=== PATIENT | female | born 1990 | race African-American/Black ===

== ENCOUNTER 2024-12-28 11:12 | Emergency (ER) | payer OTHER, SELFPAY ==
[2024-12-28 11:25] VITALS: BP 108/73
[2024-12-28 11:49] LABS: % Basophils 0.6 % (0-2); % Eosinophils 2.5 % (0-6); % Immature Granulocytes 0.2 % (0-0.5); % Lymphocytes 35.7 % (20.5-51.1); % Monocytes 6.4 % (1.7-9.3); % Neutrophils 54.6 % (42.2-75.2); Absolute Eosinophils 0.1 10^3/uL (0-0.7); Absolute Lymphocytes 1.9 10^3/uL (1.2-3.4); Absolute Monocytes 0.3 10^3/uL (0.1-0.6); Absolute Neutrophils 2.8 10^3/uL (1.4-6.5); Hematocrit 36.4 % (37.0-47.0); Hemoglobin 11.1 g/dL (12.0-16.0); Mean Corp Hgb Conc. 30.5 g/dL (33.0-37.0); Mean Corpuscular Hgb 25.6 pg (27.0-31.0); Mean Corpuscular Volume 84.1 fL (81.0-99.0); Mean Platelet Volume 9.5 fL (7.4-10.4); Nucleated Red Blood Cells % 0 %; Platelet Count 298 10^3/uL (130-400); Red Blood Cell Count 4.33 10^6/uL (4.20-5.40); Red Cell Dist. Width 13.3 % (11.5-14.5); White Blood Cell Count 5.2 10^3/uL (4.8-10.8)
[2024-12-28 12:10] LABS: COVID-19 Antigen Negative (Negative)
[2024-12-28 12:21] LABS: ALT (SGPT) 19 U/L (0-35); AST (SGOT) 24 U/L (14-36); Albumin 4.4 g/dl (3.5-5.0); Alkaline Phosphatase 66 U/L (38-126); Blood Urea Nitrogen 10 mg/dl (7-17); Calcium 9.6 mg/dl (8.4-10.2); Carbon Dioxide 30 mmol/L (22-30); Chloride 102 mmol/L (98-107); Glucose 96 mg/dl (70-99); HCG, Serum Qualitative Screen Negative; Potassium 4.5 mmol/L (3.5-5.1); Sodium 137 mmol/L (135-145); Total Bilirubin 0.7 mg/dl (0.2-1.3); Total Protein 8.1 g/dl (6.3-8.2); eGFR > 60.00
--- NOTE | 2024-12-28 12:43 | ED.GENMED ---
History of Present Illness
General
Chief Complaint: Cold/Flu/URI Symptoms
Source: patient
Time Seen by Provider: 12/28/24 12:30
History of Present Illness
History of Present Illness:
34-year-old female presents emergency department with a 1 week history of not feeling well. She describes a 'stuffy nose' associated with a very mild sore throat, mild headache, nausea, and as of today feeling like her heart is racing and she has
trouble breathing. She denies cough, vomiting, abdominal pain, neck pain, photophobia back pain, rash, swelling, calf pain, estrogen use, recent immobilization, recent trauma, or other symptoms.
Past History
Past History
ED Past Medical History: Psychiatric
ED Past Surgical History: Other (Tonsillectomy)
Social History
Tobacco: Vaping
Alcohol: None
Personal: Single
Living: other
Employment: Other
Phy Exam
Physical Exam
Physical Exam:
GENERAL: Alert , in no apparent distress, extremely well-appearing
EYE: pupils equal and reactive, EOMI, no nystagmus, no photophobia
NECK: Supple, no significant adenopathy.
ENT: o/p clr, mmm, no trismus, no drool, voice clear.
CARDIAC: Regular rate and rhythm .
LUNGS: Clear breath sounds bilaterally, no acute respiratory distress, no wheezes/rales/rhonchi
ABDOMEN: Soft, without focal tenderness, no r/g, no cvat
NEUROLOGICAL: Alert and oriented, no focal neuro deficits
SKIN: Warm and dry, skin intact.
MUSCULOSKELETAL: No edema, well perfused., No calf pain or swelling
PSYCH: Normal and appropriate interaction.
Course
Orders/Labs/Results
Orders:
Orders
12/28/24 11:30
Electrocardiogram (*1) Urgent
Reason for Study: Chest Pain
EKG- Treatment ONCE
Test Result ONCE
12/28/24 11:41
COVID-19 Antigen Urgent
Source: Nasal Swab
Complete Blood Count/With Diff Urgent
Comprehensive Metabolic Panel Urgent
HCG, Serum Qualitative Screen Urgent
Comment: Notify provider if positive test present
Influenza A+B Rapid Molecular Urgent
PONCE Source: Nasal Swab
Specimen Description:
Abnormal Lab Results
12/28/24
11:41
Hgb 11.1 L g/dL
(12.0-16.0)
Hct 36.4 L %
(37.0-47.0)
MCH 25.6 L pg
(27.0-31.0)
MCHC 30.5 L g/dL
(33.0-37.0)
12/28/24 11:41
12/28/24 11:41
Vital Signs
Initial and Last Documented VS:
Initial Vital Signs
Temp Pulse Resp BP Pulse Ox
97.8 F 85 16 108/73 97
12/28/24 11:25 12/28/24 11:25 12/28/24 11:25 12/28/24 11:25 12/28/24 11:25
Last Documented Vital Signs
Temp Pulse Resp BP Pulse Ox
97.8 F 85 16 108/73 97
12/28/24 11:25 12/28/24 11:25 12/28/24 11:25 12/28/24 11:25 12/28/24 11:25
*Critical Care Note
Total Time (30-74mins, 75-104mins- exclusive of procedures): Not Applicable
Update Note
Update Note:
Patient presents to the Emergency Department with ____nasal congestion, nausea, sore throat, headache, dyspnea, palpitations
Number and Complexity of Problems Addressed at the Encounter
� Chronic conditions affecting care:
� Acute Exacerbation and/or Progression of Chronic Illness:
� Differential Diagnosis includes: But not limited to URI, sinusitis, pneumonia, bronchitis, meningitis, PE, etc. etc.
Amount and/or Complexity of Data to be Reviewed and Analyzed
� I performed an independent evaluation of and my interpretation is:
EKG: Normal sinus rhythm, normal rate, normal axis, no acute ischemia
CT:
Xrays:
Laboratory Studies: Generally unremarkable except mild anemia which patient was made aware and the need for follow-up concerning
Other:
� Review of other/old records reveals:
� Clinical information was obtained by an independent historian:
� Prescriptions/Medications Considered but not given:
� Further testing considered but not performed:
Risk of Complications and/or Morbidity or Mortality of Patient Management
� Social determinants of health affecting care:
� Discussion with other providers (PCP, Hospitalists, Consultants, etc):
� Escalation of care including admission/observation vs risk of discharge considered: Patient extremely well-appearing with an unremarkable workup here. I highly doubt more worrisome etiologies such as PE, patient does not have
tachycardia, tachypnea, hypoxia, pleuritic chest pain, calf swelling, estrogen use, etc. etc. Although she reports mild dyspnea, her lungs are clear without associated respiratory findings. Discussed with patient portance of follow-up and reasons
return to the ER.
ED Attending Note
-
Portions of this chart may have been created with voice recognition software.� Occasional wrong word or��sound alike� substitutions may have occurred due to the inherent limitations of voice recognition software.
Discharge Plan
Departure
Patient Disposition: Home (Routine Discharge)
Date of Disposition: 12/28/24
Time of Disposition: 12:43
Patient with high blood pressure during this ER visit?: Yes
Condition: Good
Discharge Problem:
URI (upper respiratory infection)
Instructions: Upper respiratory infection in adults - Discharge instructions, BLOOD PRESSURE
Referrals:
UNKNOWN - PT DOES,NOT KNOW [Family Provider] -
Activity Restrictions/Additional Instructions:
PLEASE SEE YOUR DOCTOR AND CLOSE FOLLOW-UP IN THE NEXT FEW DAYS. IF YOU DEVELOP FEVER, PERSISTENT TROUBLE BREATHING, ANY CHEST PAIN, DIZZINESS, SWELLING, ABDOMINAL PAIN, GET WORSE, DO NOT GET BETTER, OR OTHER WORRISOME SIGNS, PLEASE RETURN TO THE
ER IMMEDIATELY.
Interventions
Interventions:
*Risk Screen - Suicide Last Done: 12/28/24 11:25
*General Assessment Last Done: 12/28/24 11:25
*Neglect/Abuse Screening Last Done: 12/28/24 11:25
Discharge Date and Time
Print Language: YI
== END 2024-12-28 12:54 | disposition home or self-care (01) ==
LOC: EMR 11:12
PROVIDERS: Emergency Medicine; EMERGENCY PHYSICIAN Emergency Medicine
DX: J06.9 Acute upper respiratory infection, unspecified (principal); F17.290 Nicotine dependence, other tobacco product, uncomplicated; Z11.52 Encounter for screening for COVID-19
CPT/HCPCS: 99284; 80053; 84703; 85025; 87502; 87811; 93005

== ENCOUNTER 2025-01-15 11:49 | Emergency (ER) | payer OTHER, SELFPAY ==
[2025-01-15 12:03] VITALS: BP 115/69
[2025-01-15 12:50] LABS: COVID-19 Antigen Negative (Negative)
--- NOTE | 2025-01-15 14:31 | ED.GENMED ---
History of Present Illness
General
Chief Complaint: Throat Problem
Source: patient
Exam Limitations: none
Time Seen by Provider: 01/15/25 12:47
Nursing documentation reviewed up to this point in time: agreed with
History of Present Illness
History of Present Illness:
34-year-old female with history as documented who is currently [facility] presents to the ER for evaluation of sore throat and 'lump in my neck.' Patient says that she has had a sore throat for about a week. She says that a few days
ago she started to notice a small lump in the right anterior neck. She says it is sore to the touch. She was seen by nurse practitioner at her facility today and they referred to the ER to be evaluated. I spoke to the staff at her rehab
facility�they were concerned for possible abscess as there was some tonsillar asymmetry noted. She denies any fever, chills, cough, chest pain, shortness of breath, abdominal pain or any other complaints.
Past History
Past History
ED Past Medical History: Psychiatric
ED Past Surgical History: Other (Tonsillectomy)
Social History
Tobacco: Vaping
Alcohol: None
Personal: Single
Living: other
Employment: Other
Review of Systems
Review of Systems
All Other Systems: ROS reviewed and negative except as documented in HPI and ROS
Constitutional: Denies fever or chills
EENT: Reports sore throat and other (Neck swelling)
Respiratory: Denies cough or trouble breathing
Cardiac: Denies chest pain
ABD/GI: Denies abdominal pain
: Denies flank pain
Musculoskeletal: Denies neck pain or back pain
Phy Exam
Physical Exam
Physical Exam:
General: Well appearing and non-toxic
HEENT: protecting airway, midline uvula with no deviation, bilateral tonsillar enlargement with slight erythema but no exudate
Neck: Supple without meningismus, midline trachea; she has some right anterior chain cervical adenopathy with prominent lymph node in area of concern as well as small scattered left anterior cervical adenopathy
CV: No evidence of cyanosis
Resp: No accessory muscle use
Abd: Non-distended
Extremities: No deformities
Neuro: Alert
Psych: Normal affect
Skin: Intact
Scores
Heart Failure Risk
Heart Failure Risk Score: Not Applicable
Heart Score for Chest Pain Patients
STEMI patient?: Not applicable
Withdrawal Assessment of Alcohol
Withdrawal Assessment Completed?: Not applicable
Course
Orders/Labs/Results
Orders:
Orders
01/15/25 12:08
COVID-19 Antigen Urgent
Source: Nasal Swab
Influenza A+B Rapid Molecular Urgent
PONCE Source: Nasal Swab
Specimen Description:
Date Specimen was Collected: 01/15/25
Time Specimen was Collected: 12:06
Rapid Strep Group A Urgent
PONCE Source: Throat/Pharynx
Specimen Description:
Date Specimen was Collected: 01/15/25
Time Specimen was Collected: 12:06
Throat Culture [Throat Culture, Comprehensive] Urgent
PONCE Source: Throat/Pharynx
Specimen Description:
Date Specimen was Collected: 01/15/25
Time Specimen was Collected: 12:06
01/15/25 14:27
Test Result ONCE
01/15/25 14:30
CT Neck With Iv Contrast Urgent
Comment:
Reason For Exam: right neck pain, tonsillar enlargement
01/15/25 14:51
Complete Blood Count/With Diff Urgent
Comprehensive Metabolic Panel Urgent
HCG, Serum Qualitative Screen Urgent
01/15/25 14:55
HIV Combo Urgent
Comment: ADD ON
01/15/25 15:51
Add On- LAB Urgent
Tests Added?: HIV Combo
Abnormal Lab Results
01/15/25
14:51
Hgb 11.2 L g/dL
(12.0-16.0)
MCH 25.7 L pg
(27.0-31.0)
MCHC 30.3 L g/dL
(33.0-37.0)
Glucose 101 H mg/dl
(70-99)
01/15/25 14:51
01/15/25 14:51
Vital Signs
Initial and Last Documented VS:
Initial Vital Signs
Temp Pulse Resp BP Pulse Ox
36.7 C 83 16 115/69 98
01/15/25 12:03 01/15/25 12:03 01/15/25 12:03 01/15/25 12:03 01/15/25 12:03
Last Documented Vital Signs
Temp Pulse Resp BP Pulse Ox
36.7 C 83 16 115/69 98
01/15/25 12:03 01/15/25 12:03 01/15/25 12:03 01/15/25 12:03 01/15/25 12:03
MDM/Problems Addressed
Differential Diagnosis Includes:
Neck lump: Lymphadenopathy, PLASTICS DESIGN ENGINEER
MDM/Problems Addressed:
34-year-old female presents for evaluation of lump in the right neck in the setting of recent sore throat. Suspect likely lymphadenopathy related to viral pharyngitis however she does have significant tonsillar enlargement, staff today was concern
for peritonsillar abscess. Will check basic labs and CT neck. Swab for strep, COVID, flu. Reassess after the above.
Labs reviewed: CBC and CMP unremarkable. hCG negative. COVID-negative, flu negative, strep negative. Patient is requesting that we add on HIV testing as she has a history of drug use. Will add this. CT pending.
CT report pending�if negative for PLASTICS DESIGN ENGINEER plan to discharge. I suspect she has cervical adenopathy likely with viral pharyngitis. Supportive care. Follow-up with PCP.
*Radiology
Radiology exam reviewed: radiology read reviewed
*Pulse Oximetry
Patient hypoxic: no
*Critical Care Note
Total Time (30-74mins, 75-104mins- exclusive of procedures): Not Applicable
Data Reviewed
Source: patient
ED Attending Note
-
Portions of this chart may have been created with voice recognition software.� Occasional wrong word or��sound alike� substitutions may have occurred due to the inherent limitations of voice recognition software.
Discharge Plan
Departure
Patient with high blood pressure during this ER visit?: No
Discharge Problem:
Cervical adenopathy, Tonsillitis
Instructions: Sore Throat, Adult (DC)
Referrals:
UNKNOWN - PT DOES,NOT KNOW [Family Provider] -
Activity Restrictions/Additional Instructions:
Thank you for visiting the Emergency Department at [facility].
1. Please schedule a follow up appointment as directed. Call first thing tomorrow morning to make an appointment.
2. If indicated, please take your medications as instructed and indicated on discharge paperwork.
3. If any of your symptoms do not improve, or persist, or become more severe within 6-12 hours, please return to the emergency department for further care.
4. Please return to the emergency department if you develop a headache, neck pain/stiffness, fever greater than 100.4F, chest pain, shortness of breath, persistent nausea, vomiting, slurred speech, difficulty walking, numbness/tingling, weakness,
signs of infection or any other symptoms that are worrisome to you.
Please call [phone] if you have any questions.
Interventions
Interventions:
*Risk Screen - Suicide Last Done: 01/15/25 12:03
*General Assessment Last Done: 01/15/25 12:48
*Neglect/Abuse Screening Last Done: 01/15/25 12:03
*ED- Fall Risk Assessment Last Done: 01/15/25 12:48
*ED COVID-19 Vaccine History Last Done: 01/15/25 12:48
ED-EENT Assessment Last Done: 03/28/25 12:48
Discharge Date and Time
Print Language: MONGOLIAN
[2025-01-15 14:58] LABS: % Basophils 0.7 % (0-2); % Eosinophils 3.1 % (0-6); % Immature Granulocytes 0.2 % (0-0.5); % Lymphocytes 31.8 % (20.5-51.1); % Monocytes 6.3 % (1.7-9.3); % Neutrophils 57.9 % (42.2-75.2); Absolute Eosinophils 0.2 10^3/uL (0-0.7); Absolute Lymphocytes 1.9 10^3/uL (1.2-3.4); Absolute Monocytes 0.4 10^3/uL (0.1-0.6); Absolute Neutrophils 3.4 10^3/uL (1.4-6.5); Hemoglobin 11.2 g/dL (12.0-16.0); Mean Corp Hgb Conc. 30.3 g/dL (33.0-37.0); Mean Corpuscular Hgb 25.7 pg (27.0-31.0); Mean Corpuscular Volume 85.1 fL (81.0-99.0); Mean Platelet Volume 9.5 fL (7.4-10.4); Nucleated Red Blood Cells % 0 %; Platelet Count 274 10^3/uL (130-400); Red Blood Cell Count 4.35 10^6/uL (4.20-5.40); White Blood Cell Count 5.8 10^3/uL (4.8-10.8)
[2025-01-15 15:19] LABS: HCG, Serum Qualitative Screen Negative
[2025-01-15 15:22] LABS: ALT (SGPT) 14 U/L (0-35); AST (SGOT) 21 U/L (14-36); Albumin 4.2 g/dl (3.5-5.0); Alkaline Phosphatase 66 U/L (38-126); Blood Urea Nitrogen 12 mg/dl (7-17); Calcium 9.5 mg/dl (8.4-10.2); Carbon Dioxide 29 mmol/L (22-30); Chloride 104 mmol/L (98-107); Glucose 101 mg/dl (70-99); Potassium 4.5 mmol/L (3.5-5.1); Sodium 141 mmol/L (135-145); Total Bilirubin 0.6 mg/dl (0.2-1.3); Total Protein 7.7 g/dl (6.3-8.2); eGFR > 60.00
[2025-01-15 17:47] VITALS: BP 114/64
[2025-01-15 18:13] LABS: HIV Combo Negative (Negative)
== END 2025-01-15 18:43 | disposition home or self-care (01) ==
LOC: EMR 11:49
PROVIDERS: Emergency Medicine; EMERGENCY PHYSICIAN Emergency Medicine
DX: J03.90 Acute tonsillitis, unspecified (principal); R59.0 Localized enlarged lymph nodes; F17.290 Nicotine dependence, other tobacco product, uncomplicated; Z11.52 Encounter for screening for COVID-19
CPT/HCPCS: 99284; 70491; 80053; 84703; 85025; 87070; 87389; 87502; 87811; 87880; Q9967